=== PATIENT | male | born 1975 | race Caucasian/White ===

== ENCOUNTER 2016-10-24 07:58 | Observation (INO) | payer BC ==
[~2016-10-24 07:58] MED LIST: Buffered Lidocaine 1% SYR 3ML* 3 ML/SYR SYRINGE INTRADERM ONE; Dexamethasone IV* 4 MG/ML 1 ML (4 MG) IV SLOW PU ONE; DiMENhydriNATE IV* 50 MG/ML VIAL IV PUSH PRN; Famotidine IV* 10 MG/ML 2 ML (20 mg) IV ONE; Ondansetron INJ* 2 MG/ML VIAL IV PRN; PROCHLORPERAZINE INJ 5 MG/ML 2 ML VIAL IV PRN; Scopolamine 1.5 mg* PATCH TRANSDERM PRN; fentaNYL* 50 MCG/ML 2 ML VIAL (100 MCG VIAL) IV PRN
[2016-10-24] MEDS ORDERED: Buffered Lidocaine 1% SYR 3ML* 3 ML/SYR SYRINGE ONE (08:11)
[2016-10-24] MEDS ORDERED: ceFAZolin 2 GM PREMIX (*) 2 GM/50 ML BAG IVPB ONE (08:11)
[2016-10-24] MEDS ORDERED: Dexamethasone IV* 4 MG/ML 1 ML (4 MG) ONE (08:11)
[2016-10-24] MEDS ORDERED: Famotidine IV* 10 MG/ML 2 ML (20 mg) ONE (08:11)
[2016-10-24] MEDS ORDERED: fentaNYL* 50 MCG/ML 2 ML VIAL (100 MCG VIAL) ONE (08:49)
[2016-10-24] MEDS ORDERED: Midazolam* 1 MG/ML 5 ML VIAL (5 MG) ONE (08:50)
[2016-10-24] MEDS ORDERED: Lidocain 1% EPI 1:100,000 * 30 ML MDV ONE (09:21)
[2016-10-24] MEDS ORDERED: Thrombin 5,000 UNITS* 1 APPLIC KIT - topical use - TOPICAL ONE (09:21)
[2016-10-24] MEDS ORDERED: Bacitracin IV* 50,000 UNITS INJ ONE (09:22)
[2016-10-24] MEDS ORDERED: Lidocaine 2% MPF* 2 ML VIAL ONE (10:39)
[2016-10-24] MEDS ORDERED: Succinylcholine* 20 MG/ML 10 ML VIAL ONE (10:39)
[2016-10-24] MEDS ORDERED: Ketorolac INJ* 30 MG/ML 1 ML VIAL ONE (10:39)
[2016-10-24] MEDS ORDERED: Propofol* 10 MG/ML 20 ML BTL IV PUSH ONE (10:39)
[2016-10-24] MEDS ORDERED: Ondansetron INJ* 2 MG/ML VIAL ONE (10:39)
[2016-10-24] MEDS ORDERED: Ondansetron INJ* 2 MG/ML VIAL IV PRN (10:54)
[2016-10-24] MEDS ORDERED: Magnesium Hydroxide LIQ* 30 ML UDC PO PRN (10:54)
[2016-10-24] MEDS ORDERED: Acetaminophen TAB* 325 MG PO PRN (10:54)
[2016-10-24] MEDS ORDERED: Nicotine PATCH 21 MG/24 HR* PATCH TRANSDERM SCH (11:00)
[2016-10-24] MEDS ORDERED: HYDROmorphone INJ* 1 MG/ML CARPUJECT SYRINGE ONE (11:25)
[2016-10-24] MEDS: HYDROmorphone INJ* 1 MG/ML CARPUJECT SYRINGE IV PRN ×3 (11:30→12:01)
[2016-10-24] MEDS: HYDROcodone/ACETAMIN 5-325 MG* 1 TAB PO PRN ×3 (12:46→20:41)
--- NOTE | 2016-10-24 13:13 | RAD ---
INDICATION: Operative control films. Lumbar discectomy L5-S1 left COMPARISON: MRI 10/11/2016 TECHNIQUE: Routine PA, lateral, and oblique imaging was performed . FINDINGS: A single crosstable lateral image obtained at 1013 hours shows retractors and a hemostat at the L5-S1 level.
[2016-10-25] MEDS: HYDROcodone/ACETAMIN 5-325 MG* 1 TAB PO PRN ×2 (01:42→07:27)
[2016-10-25 07:33] VITALS: BP 108/70
--- NOTE | 2016-10-25 08:05 | PN ---
Progress Note - Progress Note SOAP: Subjective: [This is a 41 year old male s/p lumbar discectomy L5-S1 on the left POD #1. He complains of low back incisional pain. He is ambulating independently. He is eating, drinking and voiding without difficulty. Pre-operative lower extremity pain is resolved. Denies numbness, tingling, weakness and pain in the bilateral lower extremities. No headache. ] Objective: [ Vital Signs: Temp Pulse Resp BP Pulse Ox 97.3 F 75 16 108/70 100 10/25/16 07:24 10/25/16 07:24 10/25/16 07:27 10/25/16 07:24 10/25/16 07:24 General: Alert and oriented. No distress. Neuro: Motor and sensory intact. Incision: Intact with cayden. No swelling. Mild tenderness. No signs of infection. Extremities: Full ROM.] Assessment: [This patient is following a satisfactory post-operative course at this time. ] Plan: [1. Discharge home today. 2. Discharge instructions including wound care and activity level were discussed with the patient. ]
[2016-10-25] MEDS ORDERED: Nicotine Patch Removal NOTE PATCH OFF SCH (21:00)
--- NOTE | 2016-10-26 19:24 | OP ---
DATE OF OPERATION: 10/24/16 - ROOM #335 DATE OF : 79 PRIMARY SURGEON: Stiven Gabriel MD ENGINEERING OPERATOR: FILI Petit ANESTHESIOLOGIST: Manav Molina MD ANESTHESIA: General. PRE-OP DIAGNOSIS: Herniated nucleus pulposus, L5-S1 on the left. POST-OP DIAGNOSIS: Herniated nucleus pulposus, L5-S1 on the left. OPERATIVE PROCEDURE: Lumbar diskectomy, L5-S1 on the left and microdissection. DESCRIPTION OF PROCEDURE: After satisfactory general anesthesia was obtained, the patient was placed on the operating table in a prone position with the chest supported on a Alexandre frame and the back slightly flexed. The lumbar region was then clipped, prepped, and draped in a sterile manner for lumbar laminectomy and a skin incision outlined from L5 to the sacrum. This incision was infiltrated with 1% Xylocaine with epinephrine after which it was turned down sharply to the level of the lumbar fascia. The fascia was divided along the spinous processes of L5 and the upper sacrum and the paraspinal musculature stripped away from these posterior elements using the periosteal elevator and monopolar cautery. An intraoperative x-ray was obtained verifying proper interspace localization after which a partial ramón-laminectomy was carried out by removing the inferior aspect of the L5 lamina and medial aspect of the facet complex with a combination of the Midas-Craig drill and Kerrison rongeurs. This was carried superiorly until the attachment of the ligamentum flavum was taken down. Ligamentum flavum was then removed with the Kerrison as well. At this point in the procedure, the operating microscope was brought into the field and the remainder of the procedure done under micro-scopic visualization. Utilizing microdissection, epidural venous structures were coagulated and divided. The S1 nerve root was noted to be compressed by subcapsular disk herniation. An opening was made in the posterior longitudinal ligament and multiple fragments of disk material were removed from the interspace. With further exploration, there was noted to be a subcapsular free fragment projecting medially, which was removed with microdissection. At the conclusion of the decompression, the S1 nerve root was noted to be free in its course. After assuring adequate hemostasis, the wound was thoroughly irrigated after which the fascia was reapproximated with 0 Vicryl suture, the subcutaneous tissue was closed with 3-0 Vicryl suture and the skin closed with skin clips. The estimated blood loss was less than 50 cc and the final sponge, padding, and needle counts were correct. The patient was taken to the recovery room, extubated and in stable condition. [id number]/[facility] #: [id number] MTDD
[2016-10-27] MEDS ORDERED: Scopolamine PATCH Remove* 1 NOTE MISC PATCH OFF ONE (07:42)
--- NOTE | 2016-11-05 23:19 | DS ---
DISCHARGE SUMMARY: DATE OF ADMISSION: 10/24/16 DATE OF DISCHARGE: 10/25/16 DISCHARGE DIAGNOSIS: Herniated nucleus pulposus, L5-S1, on the left. SPECIAL PROCEDURE: Lumbar diskectomy, L5-S1, on the left. HOSPITAL COURSE: This 41-year-old male was seen in office with signs and symptoms of severe lumbar radiculopathy on the left. He failed to improve with conservative treatments over several months and was admitted at this time for elective surgical intervention. On the day of admission, he was taken to surgery, where under general anesthesia, a lumbar diskectomy at L5-S1 on the left operation was carried out. Postoperatively, he was feeling well. Preoperative pain in the lower extremity was improved. He was ambulating independently. He was eating, drinking, and voiding without difficulty. On the first postoperative day, he was discharged home to the care of his family. Discharge instructions including activity level and wound care were discussed with the patient and provided. He will be seen in the office in 7 to 10 days for followup and staple removal. DISCHARGE MEDICATIONS: Include [place] 5/325 mg 2 tabs by mouth every 4 hours as needed for pain. FILI LONG [id number]/[facility] #: [id number] MEAGAN
== END 2016-10-25 09:45 | disposition home or self-care (01) ==
LOC: OR 07:58 → SSU 10:55
PROVIDERS: ADMIT Neurological Surgery; ATTEND Neurological Surgery
PROC: 00NY0ZZ Release Lumbar Spinal Cord, Open Approach (ICD-10-PCS; principal; 2016-10-24 09:30)
DX: M51.16 Intervertebral disc disorders with radiculopathy, lumbar region (principal); F17.210 Nicotine dependence, cigarettes, uncomplicated
CPT/HCPCS: 72100; 88304; 96374; 99406; A9270-GY; G0378; J0330; J0690; J1100; J1170; J1885; J2250; J2405; J2704; J3010

== ENCOUNTER 2018-04-02 21:15 | Emergency (ER) | payer SELFPAY ==
[2018-04-02 21:33] VITALS: BP 143/84
--- NOTE | 2018-04-02 21:52 | ED ---
HPI Chest Pain - HPI Summary HPI Summary: 43 yr old male with the complaint of spitting up blood for two days. He looked at back of tongue and found is taste buds which he points to as the bumps. He complains of having chest pain that feels like indigestion with exertion, and some SOB. He has pain at rest now, 2/10. No fever, chills. He has some associated dizziness. - History of Current Complaint Chief Complaint: UCGeneralIllness Time Seen by Provider: 04/02/18 21:37 Pain Intensity: 0 - Additional Pertinent History Primary Care Physician: [id number] - Allergy/Home Medications Allergies/Adverse Reactions: Allergies Allergy/AdvReac Type Severity Reaction Status Date / Time No Known Allergies Allergy Verified 04/02/18 21:34 PMH/Surg Hx/FS Hx/Imm Hx Endocrine/Hematology History: Denies: Hx Diabetes Cardiovascular History: Denies: Hx Hypertension, Hx Pacemaker/ICD Respiratory History: Reports: Hx Pneumonia History: Denies: Hx Renal Disease Musculoskeletal History: Reports: Hx Arthritis - Spinal, Hx Back Problems Sensory History: Denies: Hx Contacts or Glasses, Hx Hearing Aid Opthamlomology History: Denies: Hx Contacts or Glasses Psychiatric History: Denies: Hx Panic Disorder - Surgical History Surgery Procedure, Year, and Place: fatty tumor removed from his back, LUMBAR SPINE SURGERY SEPTEMBER 2016 Hx Anesthesia Reactions: No Infectious Disease History: No Infectious Disease History: Denies: Hx Clostridium Difficile, Hx Hepatitis, Hx Human Immunodeficiency Virus (HIV), Hx of Known/Suspected MRSA, Hx Shingles, Hx Tuberculosis, Hx Known/ Suspected VRE, Hx Known/Suspected VRSA, History Other Infectious Disease, Traveled Outside the [place] in Last 30 Days - Family History Known Family History: Negative: Diabetes - Social History Alcohol Use: Weekly Alcohol Amount: One drink per week Substance Use Type: Reports: Marijuana Substance Use Comment - Amount & Last Used: DAILY FOR PAIN (Q4H) Smoking Status (MU): Current Every Day Smoker Type: Cigarettes Amount Used/How Often: 1 ppd Length of Time of Smoking/Using Tobacco: 20 YEARS Have You Smoked in the Last Year: Yes Review of Systems Constitutional: Negative Positive: Chest Pain Positive: Shortness Of Breath All Other Systems Reviewed And Are Negative: Yes Physical Exam Triage Information Reviewed: Yes Vital Signs On Initial Exam: Initial Vitals Temp Pulse Resp BP Pulse Ox 98.4 F 85 16 143/84 97 04/02/18 21:28 04/02/18 21:28 04/02/18 21:28 04/02/18 21:28 04/02/18 21:28 Vital Signs Reviewed: Yes Appearance: Positive: Well-Appearing, No Pain Distress Skin: Positive: Warm, Skin Color Reflects Adequate Perfusion Head/Face: Positive: Normal Head/Face Inspection ENT: Positive: Normal ENT inspection, Pharynx normal, Other - tongue on the right side is with taste buds present and they do not appear enlarged out of the ordinary.. Negative: Nasal congestion, Nasal drainage, Muffled voice, Hoarse voice Neck: Positive: Nontender Respiratory/Lung Sounds: Positive: Clear to Auscultation, Breath Sounds Present Cardiovascular: Positive: RRR. Negative: Murmur Abdomen Description: Positive: Nontender Musculoskeletal: Positive: Strength/ROM Intact Neurological: Positive: Sensory/Motor Intact, Alert, Oriented to Person Place, Time, CN Intact II-III Psychiatric: Positive: Normal - Elmer Coma Scale Best Eye Response: 4 - Spontaneous Best Motor Response: 6 - Obeys Commands Best Verbal Response: 5 - Oriented Coma Scale Total: 15 Diagnostics - Vital Signs Vital Signs Temp Pulse Resp BP Pulse Ox 04/02/18 21:28 98.4 F 85 16 143/84 97 - Laboratory Lab Statement: Any lab studies that have been ordered have been reviewed, and results considered in the medical decision making process. - EKG 04/02/18 Cardiac Rate: NL EKG Rhythm: Sinus Rhythm ST Segment: Normal Ectopy: None Chest Pain Course/Dx - Course Course Of Treatment: 43 yr old with cp, hemotysis. Signed out AMA refusal of ambulance transfer. - Diagnoses Provider Diagnoses: Chest pain, Hemoptysis, Hypertension Discharge - Sign-Out/Discharge Documenting (check all that apply): Discharge/Admit/Transfer - Discharge Plan Condition: Stable Disposition: AGAINST MEDICAL ADVICE Referrals: Flo Turner DO [Primary Care Provider] - - Billing Disposition and Condition Condition: STABLE Disposition: Against Medical Advice
== END 2018-04-02 21:50 | disposition left against medical advice (07) ==
LOC: UCCORT 21:15
DX: R07.9 Chest pain, unspecified (principal); R04.2 Hemoptysis; I10 Essential (primary) hypertension; F17.210 Nicotine dependence, cigarettes, uncomplicated
CPT/HCPCS: 93005; 99212; G0463